=== PATIENT | male | born 1975 | race Caucasian/White ===

== ENCOUNTER 2022-06-20 11:07 | Emergency (ER) | payer OTHER, SELFPAY ==
[2022-06-20 11:12] VITALS: BP 150/80; PULSE 89; RESP 18; TEMP 36.9; O2SAT 95
--- NOTE | 2022-06-20 12:01 | ED.URI ---
HPI - URI/Sore Throat General Chief Complaint: Upper Respiratory Infection Stated Complaint: Cough/Sore Throat Time Seen by Provider: 06/20/22 12:01 Source: patient, RN notes reviewed and old records reviewed Mode of arrival: ambulatory Limitations: no limitations History of Present Illness HPI Narrative: 46-year-old male who presents to [facility] with a 3 day history of sore throat, cough, sinus drainage, states he has had some chills with sweats, also some body aches and headaches.. He has COVID vaccinations and flu shot.He states that his cough is worse at night and he is not resting well patient denies any fever . Patient has taken Coricidin brand decogestant for his symptoms MD elicited complaint: cough, sore throat, rhinorrhea and nasal congestion Onset (ago): day(s) (3) Pain scale (0-10): 6 Treatments prior to arrival: other (Coricidin brand decogestant) Related Data Home Medications Medication Instructions Recorded Confirmed albuterol sulfate 90 mcg/actuation See Rx Instructions .Route 06/20/22 06/25/22 aerosol inhaler .COMPLEX PRN sob amlodipine 10 mg tablet 10 mg PO DAILY 06/20/22 06/25/22 aspirin 81 mg tablet,delayed 81 mg PO DAILY 06/20/22 06/25/22 release atorvastatin 80 mg tablet 80 mg PO DAILY 06/20/22 06/25/22 carvedilol 25 mg tablet 25 mg PO BID 06/20/22 06/25/22 ertugliflozin 15 mg tablet 15 mg PO DAILY 06/20/22 06/25/22 (Steglatro) ferrous sulfate 325 mg (65 mg 325 mg PO DAILY 06/20/22 06/25/22 iron) tablet hydroxyzine HCl 25 mg tablet 25 mg PO QID 06/20/22 06/25/22 insulin glargine 100 unit/mL (3 45 unit subcut DAILY 06/20/22 06/25/22 mL) subcutaneous pen (Lantus Solostar U-100 Insulin) insulin lispro 100 unit/mL See Rx Instructions .Route .COMPLEX 06/20/22 06/25/22 subcutaneous pen (Humalog KwikPen (U-100) Insulin) nortriptyline 25 mg capsule 25 mg PO BID 06/20/22 06/25/22 semaglutide 1 mg/dose (4 mg/3 mL) See Rx Instructions .Route .COMPLEX 06/20/22 06/25/22 subcutaneous pen injector (Ozempic) sildenafil 100 mg tablet 100 mg PO DAILY 06/20/22 06/25/22 tamsulosin 0.4 mg capsule 0.4 mg PO DAILY 06/20/22 06/25/22 torsemide 10 mg tablet 10 mg PO DAILY 06/20/22 06/25/22 Allergies Allergy/AdvReac Type Severity Reaction Status Date / Time metformin Allergy Unknown Nausea and Verified 11/18/18 18:52 Vomiting Review of Systems Review of Systems: CONSTITUTIONAL: Reports malaise, chills, sweats, or fever. EYES: Denies visual changes, redness, or discharge. ENT: Reports rhinorrhea, congestion, sinus pain, otalgia positive for sore throat. CARDIOVASCULAR: Denies chest pain, palpitations, or edema. RESPIRATORY: Reports dry and loose cough.? Denies dyspnea. GASTROINTESTINAL: Denies abdominal pain, nausea, vomiting, diarrhea SKIN: Denies rash or itching. MUSCULOSKELETAL: reports myalgia. NEUROLOGIC: reports headache. All systems reviewed & are unremarkable except as noted in HPI and below PMFSH Past Medical History Medical History (Updated 06/27/22 @ 18:29 by Peggy Andino NP) Congenital absence of one kidney Diabetes Hypertension Surgical History Surgical History (Updated 06/27/22 @ 18:30 by Peggy Andino NP) H/O heart artery stent History of ankle surgery ORIF screw right ankle Comments At time of signature, agree with nursing past medical, surgical, social and family history. There is no relevant family history pertinent to the presenting complaint Exam Narrative: GENERAL: Well-appearing, well-nourished, and in no acute distress. HEAD: Normocephalic EYES: PERRLA, conjunctivae clear ENT: Nares clear, turbinates edematous and erythematous, clear discharge. Mucous membranes moist. TM pearly ramon with dull light reflex bilaterally; no tragal tenderness. Oropharynx erythematous without lesions. Tonsils not enlarged and without exudate, no drooling, no hoarseness, no trismus, uvula midline. NECK: Supple. No lymphadenopathy CHEST: C
== END 2022-06-20 12:40 | disposition home or self-care (01) ==
PROVIDERS: Emergency Provider Registered Nurse
DX: J06.9 Acute upper respiratory infection, unspecified (principal); R05.9 Cough, unspecified; Z20.822 Contact with and (suspected) exposure to COVID-19; E11.9 Type 2 diabetes mellitus without complications; Z79.4 Long term (current) use of insulin; I10 Essential (primary) hypertension; Z95.5 Presence of coronary angioplasty implant and graft; Q60.0 Renal agenesis, unilateral; Z79.82 Long term (current) use of aspirin
CPT/HCPCS: 87426; 87804; 99213; C9803; G0463

== ENCOUNTER 2022-07-14 14:56 | Emergency (ER) | payer OTHER, SELFPAY ==
[2022-07-14 14:57] VITALS: BP 169/93; PULSE 91; RESP 16; TEMP 36.6; O2SAT 97
--- NOTE | 2022-07-14 15:22 | ED.GENADULT ---
HPI - General Adult General Chief complaint: Unspecified Stated complaint: back pain Time Seen by Provider: 07/14/22 15:12 History of Present Illness HPI narrative: 46-year-old male presents the emergency room for evaluation of gradual onset of right thoracic back pain. Patient states that he was recently engaged in activities requiring repetitive motion where he was lifting heavy objects and taking inventory. States the pain is worse with rotational movements of his back and when he takes deep breaths. States is taken Tylenol once with some relief of pain. Denies any known injury or trauma. Denies cough. Denies shortness of breath or pain. Related Data Home Medications Medication Instructions Recorded Confirmed albuterol sulfate 90 mcg/actuation See Rx Instructions .Route 06/20/22 06/25/22 aerosol inhaler .COMPLEX PRN sob amlodipine 10 mg tablet 10 mg PO DAILY 06/20/22 06/25/22 aspirin 81 mg tablet,delayed 81 mg PO DAILY 06/20/22 06/25/22 release atorvastatin 80 mg tablet 80 mg PO DAILY 06/20/22 06/25/22 carvedilol 25 mg tablet 25 mg PO BID 06/20/22 06/25/22 ertugliflozin 15 mg tablet 15 mg PO DAILY 06/20/22 06/25/22 (Steglatro) ferrous sulfate 325 mg (65 mg 325 mg PO DAILY 06/20/22 06/25/22 iron) tablet hydroxyzine HCl 25 mg tablet 25 mg PO QID 06/20/22 06/25/22 insulin glargine 100 unit/mL (3 45 unit subcut DAILY 06/20/22 06/25/22 mL) subcutaneous pen (Lantus Solostar U-100 Insulin) insulin lispro 100 unit/mL See Rx Instructions .Route .COMPLEX 06/20/22 06/25/22 subcutaneous pen (Humalog KwikPen (U-100) Insulin) nortriptyline 25 mg capsule 25 mg PO BID 06/20/22 06/25/22 semaglutide 1 mg/dose (4 mg/3 mL) See Rx Instructions .Route .COMPLEX 06/20/22 06/25/22 subcutaneous pen injector (Ozempic) sildenafil 100 mg tablet 100 mg PO DAILY 06/20/22 06/25/22 tamsulosin 0.4 mg capsule 0.4 mg PO DAILY 06/20/22 06/25/22 torsemide 10 mg tablet 10 mg PO DAILY 06/20/22 06/25/22 Allergies Allergy/AdvReac Type Severity Reaction Status Date / Time metformin Allergy Unknown Nausea and Verified 07/14/22 15:02 Vomiting Review of Systems Review of Systems: CONSTITUTIONAL: Denies fever, chills, or sweats. EYES: Denies visual changes, redness, or discharge. ENT: Denies rhinorrhea, congestion, sore throat, or otalgia. CARDIOVASCULAR: Denies chest pain, palpitations, or edema. RESPIRATORY: Denies cough or dyspnea. GASTROINTESTINAL: Denies abdominal pain, nausea, vomiting, or diarrhea. GENITOURINARY: Denies dysuria or hematuria. SKIN: Denies rash or itching. MUSCULOSKELETAL: Reports back pain NEUROLOGIC: Denies headache, numbness, dizziness, or weakness. PSYCHIATRIC: Denies anxiety or depression. [facility] Past Medical History Medical History Congenital absence of one kidney Diabetes Hypertension Surgical History Surgical History H/O heart artery stent History of ankle surgery ORIF screw right ankle Exam Narrative: GENERAL: Well-appearing, well-nourished, no physical limitations, and in no acute distress. HEAD: Normocephalic, atraumatic. EYES: Conjunctivae normal, PERRLA and EOMI. CHEST: Clear to auscultation. No respiratory distress. No wheezes rales or rhonchi. HEART: Regular rate and rhythm. No murmur heard. Normal peripheral pulses. BACK: No midline cervical/thoracic/lumbar tenderness, step-offs, bony abnormality; FROM. Tenderness to the superior aspect of his right latissimus dorsi muscle. EXTREMITIES: Normal range of motion. No edema. No clubbing or cyanosis SKIN: Warm, dry, no rash. No noted wounds NEURO: No focal deficits. Alert and oriented x3. MAEW. CN's II-XI intact bilaterally, normal gait PSYCH: Cooperative. Normal mood and affect. Course Vital Signs Vital signs: Vital Signs Temperature 36.6 C 07/14/22 14:57 Pulse Rate 91 07/14/22 14:57 Respiratory Rate 16
--- NOTE | 2022-07-14 16:16 | PC.NURSE ---
This RN was discharging patient when patient began saying you marcin didnt do anything for me. This place is a joke . This RN apologized and asked if he would like me to get the provider to come back in and answer any questions and patient states just give me my shit to sign . Patient then said he was not given an xray. This RN informed patient that the provider did not deem an xray necessary due to there being no trauma. Patient then states It could be a torn muscle . I then informed him that an xray would not show a torn muscle and that would require different studies and I again offered to get the provider for the patient to speak with and he could go over and answer the patient's questions as to why he did not order any scans at this time. Patient then states This place is a joke. You marcin dont do anything and proceeded to walk out.
== END 2022-07-14 16:21 | disposition home or self-care (01) ==
PROVIDERS: Emergency Provider Nurse Practitioner Family
DX: S29.012A Strain of muscle and tendon of back wall of thorax, initial encounter (principal); E11.9 Type 2 diabetes mellitus without complications; Z79.4 Long term (current) use of insulin; I10 Essential (primary) hypertension; X50.3XXA Overexertion from repetitive movements, initial encounter
CPT/HCPCS: 99283